=== PATIENT | male | born 1970 | race Caucasian/White ===

== ENCOUNTER 2016-08-21 05:53 | Day surgery (SDC) | payer OTHER ==
[2016-08-20 09:31] VITALS: BMI 32.3
[2016-08-21] VITALS (9 sets, daily range): BP systolic 111–126; BP diastolic 60–83; PULSE 60–72; RESP 18–25; Ht 180.3 cm; Wt 102.1 kg
[~2016-08-21] VITALS: Ht 180.3 cm; Wt 102.1 kg
[~2016-08-21 05:53] MED LIST: ASPI-664 PO; CEFAZOLIN 2 GM/50 ML (PMX) 50 ML IVPB SCH; DCL25TEC PO; GABA300C16 PO; HYDR-762 PO; LEVO125T71 PO; LOVA20TA PO; METF-382 PO
[2016-08-21] MEDS ORDERED: ATEN-51 PO (05:56)
[2016-08-21] MEDS ORDERED: LYRI100 PO (05:56)
[2016-08-21] MEDS ORDERED: MTF1000T PO (05:56)
[2016-08-21] MEDS ORDERED: PRAV80TA27 PO (05:56)
[2016-08-21] MEDS ORDERED: FENTAnyl 50 MCG/ML VIAL ONE (07:08)
[2016-08-21] MEDS ORDERED: MIDAZOLAM 1 MG/ML 2 ML INJ ONE (07:08)
[2016-08-21] MEDS ORDERED: CEFAZOLIN 1 GM INJ ONE (07:08)
[2016-08-21] MEDS ORDERED: PROPOFOL 20 ML ONE (07:08)
[2016-08-21] MEDS ORDERED: LIDOCAINE 2% (MDV) 20 ML INJ ONE (07:15)
[2016-08-21] MEDS ORDERED: BUPIVACAINE 0.5% (SDV) 30 ML INJ ONE (07:15)
--- NOTE | 2016-08-21 07:29 | HPN ---
Date/Time of Note Date/Time of Note DATE: 08/21/16 TIME: 07:28 Interval H&P Admission Note Pt. seen H&P reviewed: No system changes NASIM CASTREJON DPM Aug 21, 2016 07:29
[2016-08-21] MEDS ORDERED: hydrALAzine 20 MG INJ IV PRN (08:00)
[2016-08-21] MEDS ORDERED: LABETALOL HCL 20MG INJ IV PRN (08:00)
[2016-08-21] MEDS ORDERED: MEPERIDINE 25 MG INJ IV PRN (08:00)
[2016-08-21] MEDS ORDERED: HYDROmorphONE (0.2 MG/ML) 10ML SYG IV PRN ×3 (08:00)
[2016-08-21] MEDS ORDERED: ONDANSETRON 4 MG INJ IV PRN (08:00)
[2016-08-21] MEDS ORDERED: FENTAnyl 50 MCG/ML VIAL IV PRN ×2 (08:00)
[2016-08-21] MEDS ORDERED: HYDROCODONE/APAP (10/325) TAB PO PRN (12:00)
--- NOTE | 2016-08-21 14:31 | RADRPT ---
PROCEDURE: XR Left Foot. CLINICAL INDICATION: Left foot pain. Postop. TECHNIQUE: Three views. Frontal, lateral, and oblique. COMPARISON: None. FINDINGS: There is no fracture or dislocation. There is a small amount of gas in the soft tissues anteriorly and there is soft tissue swelling ante riorly overlying the metatarsals. Articular surfaces are intact. There is no lytic or blastic lesion. There is no radiopaque foreign body. IMPRESSION: 1. Gas in the soft tissues and anterior soft tissue swelling overlying the metatarsals. 2. Otherwise unremarkable images of the left foot. RPTAT: QQ .Nilo Palacio MD, MD Date Time Electronically viewed and signed by .Nilo Palacio MD, on 08/21/2016 14:30 .R/
== END 2016-08-21 11:10 | disposition home or self-care (01) ==
LOC: SDS 05:53
PROVIDERS: ATTEND Podiatrist Foot & Ankle Surgery
DX: G57.62 Lesion of plantar nerve, left lower limb (principal); G89.29 Other chronic pain; I10 Essential (primary) hypertension; E78.00 Pure hypercholesterolemia, unspecified; E11.9 Type 2 diabetes mellitus without complications; Z79.82 Long term (current) use of aspirin; F17.210 Nicotine dependence, cigarettes, uncomplicated
CPT/HCPCS: 82962; 88304; J0690; J2175; J2250; J2405; J3010